=== PATIENT | male | born 1945 | race Hispanic/Latino ===

== ENCOUNTER 2023-10-08 08:09 | Observation (INO) | payer MEDICARE ==
[2023-10-01 15:57] LABS: BASOPHILS % 0.6 % (0.0-1.0); EOSINOPHILS # (AUTO) 0.4 (0.0-0.4); EOSINOPHILS % 5.9 % (0.0-6.0); HEMATOCRIT 36.5 % (38.2-49.6); HEMOGLOBIN 12.4 g/dL (14.0-18.0); LYMPHOCYTES # (AUTO) 1.5 (1.0-3.2); MEAN CORPUSCULAR VOLUME 88.2 fL (81-99); MONOCYTES # (AUTO) 0.9 (0.2-0.8); MONOCYTES % 11.7 % (4.4-11.3); NEUTROPHILS # (AUTO) 4.4 (2.1-6.9); NEUTROPHILS % 60.4 % (38.7-80.0); PLATELET COUNT 162 x10e3/uL (140-360); RED BLOOD COUNT 4.14 x10e6/uL (4.3-5.7); RED CELL DISTRIBUTION WIDTH 14.4 % (11.7-14.4); WHITE BLOOD COUNT 7.27 x10e3/uL (4.8-10.8)
[2023-10-01 16:15] LABS: ANION GAP 16.5 mmol/L (8-16); CALCIUM 9.2 mg/dL (8.4-10.2); CREATININE, SERUM 1.11 mg/dL (0.72-1.25); POTASSIUM 3.5 mmol/L (3.5-5.1)
[~2023-10-08] VITALS: Ht 170.2 cm; Wt 87.5 kg
[~2023-10-08 08:09] MED LIST: ASPIRIN81 MG PO; CARVEDILOL12.5 MG PO; FOLIC ACID0.4 MG PO; HYDROCHLOROTHIA25 MG PO; LIPITOR10 MG PO; LOSARTAN POTAS100 MG PO
[2023-10-08] MEDS: LACTATED RINGER'S 1,000 ML BAG IV ONE (09:18)
[2023-10-08] MEDS ORDERED: LIDOCAINE 1% W/EPINEPHRINE 20 ML VIAL ONE (10:12)
[2023-10-08] MEDS ORDERED: BUPIVACAINE 0.25% 30ML SDV ONE (10:12)
[2023-10-08] MEDS ORDERED: ACETAMINOPHEN 1000 MG/100 ML IV ONE (11:52)
[2023-10-08] MEDS ORDERED: ONDANSETRON HCL INJ 2MG/ML 2ML 2 MG/ML VIAL ONE (11:52)
[2023-10-08] MEDS ORDERED: PROPOFOL IV EMULSION 10 MG/ML 20 ML VIAL ONE (11:52)
[2023-10-08] MEDS ORDERED: SEVOFLURANE INHAL SOLN 250 ML PEN BTL ONE (11:52)
[2023-10-08] MEDS ORDERED: LIDOCAINE HCL 2% LOCAL INJ 5 ML SDV VIAL INJ ONE (11:52)
[2023-10-08] MEDS ORDERED: EPHEDRINE SULFATE INJ 50 MG/ML VIAL ONE (11:52)
[2023-10-08] MEDS ORDERED: ROCURONIUM BROMIDE 10 MG/ML 5ML VIAL IV ONE (11:52)
[2023-10-08] MEDS ORDERED: DEXMEDETOMIDINE HCL 200 MCG/2 ML VIAL ONE (11:52)
[2023-10-08] MEDS ORDERED: KETOROLAC TROMETHAMINE 30 MG/ML VIAL IV PRN (13:00)
[2023-10-08] MEDS ORDERED: FENTANYL CITRATE/PF 100MCG/2 ML INJ ONE (13:10)
[2023-10-08] MEDS: SODIUM CHLORIDE 0.9% 1000ML 1,000 ML IV SCH (15:02)
[2023-10-08] MEDS: ONDANSETRON HCL INJ 2MG/ML 2ML 2 MG/ML VIAL IV PRN (15:03)
[2023-10-08] MEDS: HYDROMORPHONE 1MG/1ML INJ IV PRN (15:03)
[2023-10-08 16:02] VITALS: BP 137/70; PULSE 55; RESP 17; TEMP 97.5; O2SAT 96
[2023-10-08] MEDS: CARVEDILOL 12.5 MG TAB PO SCH (16:46)
[2023-10-08] MEDS: HYDROCODONE/APAP 7.5MG-325MG 1 EA TAB PO PRN (17:21)
[2023-10-08 17:25] VITALS: BP 137/70; PULSE 55; RESP 17; TEMP 97.5; O2SAT 96
[2023-10-08 20:00] VITALS: BP 120/60; PULSE 64; RESP 18; TEMP 98.2; O2SAT 95
[2023-10-08 21:00] VITALS: BP 120/60; PULSE 64; RESP 18; TEMP 98.2; O2SAT 95
[2023-10-09] VITALS: BP 131/62; PULSE 62; RESP 18; TEMP 97.3; O2SAT 98
[2023-10-09 04:00] VITALS: BP 132/67; PULSE 79; RESP 18; TEMP 97.8; O2SAT 98
[2023-10-09 06:38] LABS: BASOPHILS % 0.4 % (0.0-1.0); EOSINOPHILS # (AUTO) 0.2 (0.0-0.4); EOSINOPHILS % 2.1 % (0.0-6.0); HEMATOCRIT 35.6 % (38.2-49.6); HEMOGLOBIN 12.2 g/dL (14.0-18.0); LYMPHOCYTES # (AUTO) 0.9 (1.0-3.2); LYMPHOCYTES % 11.3 % (18.0-39.1); MEAN CORPUSCULAR HGB CONC 34.3 g/dL (31-35); MEAN CORPUSCULAR VOLUME 87.7 fL (81-99); MONOCYTES # (AUTO) 0.8 (0.2-0.8); MONOCYTES % 10.3 % (4.4-11.3); NEUTROPHILS % 75.6 % (38.7-80.0); PLATELET COUNT 159 x10e3/uL (140-360); RED BLOOD COUNT 4.06 x10e6/uL (4.3-5.7); RED CELL DISTRIBUTION WIDTH 14.2 % (11.7-14.4); WHITE BLOOD COUNT 7.98 x10e3/uL (4.8-10.8)
[2023-10-09 07:29] LABS: ANION GAP 11.3 mmol/L (8-16); CREATININE, SERUM 0.89 mg/dL (0.72-1.25)
[2023-10-09 07:46] LABS: POTASSIUM 3.3 mmol/L (3.5-5.1)
[2023-10-09 08:00] VITALS: BP 132/67; PULSE 79; RESP 18; TEMP 97.8; O2SAT 98
[2023-10-09] MEDS: HYDROCHLOROTHIAZIDE 25 MG TAB PO SCH (10:43)
[2023-10-09] MEDS: LOSARTAN POTASSIUM 100 MG TAB PO SCH (10:43)
[2023-10-09 10:51] VITALS: BP 151/73; PULSE 78; RESP 18; TEMP 97.8; O2SAT 98
[2023-10-09 12:41] VITALS: BP 160/66; PULSE 72; RESP 17; TEMP 98.3; O2SAT 93
== END 2023-10-09 13:01 | disposition home or self-care (01) ==
LOC: OR 08:09 → PACU V 12:51 → MED/SURG2 14:19
PROVIDERS: ADMIT Surgery; ATTEND Surgery
DX: K40.90 Unilateral inguinal hernia, without obstruction or gangrene, not specified as recurrent (principal); I10 Essential (primary) hypertension; E78.5 Hyperlipidemia, unspecified; M19.91 Primary osteoarthritis, unspecified site; Z01.810 Encounter for preprocedural cardiovascular examination; Z01.812 Encounter for preprocedural laboratory examination; Z01.818 Encounter for other preprocedural examination; Z79.899 Other long term (current) drug therapy; Z79.82 Long term (current) use of aspirin
CPT/HCPCS: 36415 ×2; 49505; 71046; 80048 ×2; 85025 ×2; 88302; 93005; C1781; G0378 ×2; J0131; J1170 ×2; J2001; J2405; J2704; J3010; J7030; J7121